=== PATIENT | male | born 1950 | race Caucasian/White ===

== ENCOUNTER → 2017-03-16 | Outpatient (CLI) | payer MEDICARE ==
[~2017-03-16] MED LIST: ASPI81TA82 PO; ATOR20TA42 PO; CALC.25 PO; CARV12.5 PO; CLON.1 PO; DIGO0.123 PO; ENAL10 PO; FURO1TAB93 PO; PROT40TA PO; TERA2CAP3 PO; TICA90 PO; WARF4 PO
[2017-03-16 13:23] LABS: HEMATOCRIT 43.6 % (39.0-51.0); MEAN CELL VOLUME 88.5 FL (80.0-100.0); MEAN CORPUSCULAR HEMOGLOBIN 30.5 PG (27.0-34.0); MEAN CORPUSCULAR HGB CONC 34.5 % (32.0-36.0); PLATELET COUNT 377 TH/MM3 (150-450); RED BLOOD COUNT 4.92 MIL/MM3 (4.50-5.90); RED CELL DISTRIBUTION WIDTH 14.1 % (11.6-17.2); REVIEW FLAG FINAL
[2017-03-16 13:30] LABS: ALT (GPT) 31 U/L (12-78); ANION GAP 3 MEQ/L (5-15); AST (GOT) 23 U/L (15-37); BICARBONATE 33.8 MEQ/L (21.0-32.0); BLOOD UREA NITROGEN 14 MG/DL (7-18); CHLORIDE 103 MEQ/L (98-107); GLOMERULAR FILTRATION RATE 73 ML/MIN (>89); GLUCOSE,FASTING 116 MG/DL (74-99); POTASSIUM 4.3 MEQ/L (3.5-5.1); SODIUM (NA) 140 MEQ/L (136-145)
[2017-03-16 13:38] LABS: MICRO ALBUMIN RANDOM URINE RAW 7.2 MG/L (0.0-30.0)
[2017-03-16 13:40] LABS: ALKALINE PHOSPHATASE 83 U/L (45-117); HDL CHOLESTEROL 33.6 MG/DL (40.0-60.0); INDIRECT BILIRUBIN 0.4 MG/DL (0.0-0.8); LDL CHOLESTEROL 45 MG/DL (0-99); TOTAL BILIRUBIN ADULT 0.5 MG/DL (0.2-1.0)
[2017-03-16 16:27] LABS: HEMOGLOBIN A1a 0.8 %; HEMOGLOBIN A1b 1.8 %; HEMOGLOBIN Ao 85.6 %; HEMOGLOBIN P3 3.6 %
== END ==
LOC: PLAB 09:05
PROVIDERS: ATTEND Family Medicine
DX: E11.9 Type 2 diabetes mellitus without complications (principal); I48.91 Unspecified atrial fibrillation
CPT/HCPCS: 36415; 80048; 80061; 80076; 82043; 83036; 84443; 85027

== ENCOUNTER 2017-09-29 18:15 | Emergency (ER) | payer MEDICARE ==
[~2017-09-29] VITALS: Ht 172.7 cm; Wt 87.1 kg
[2017-09-29 18:35] VITALS: BP 161/75; PULSE 72; RESP 16; TEMP 98.8; O2SAT 97
[2017-09-29] MEDS ORDERED: TERA2CAP3 PO (19:02)
[2017-09-29] MEDS ORDERED: CALC0.25 PO (19:02)
[2017-09-29] MEDS ORDERED: FURO40TA PO (19:02)
[2017-09-29] MEDS ORDERED: ATOR20TA15 PO (19:02)
[2017-09-29] MEDS ORDERED: AMLO10TA2 PO (19:02)
[2017-09-29] MEDS ORDERED: WARF-58 PO (19:02)
[2017-09-29] MEDS ORDERED: ENAL20TA PO ×2 (19:02)
[2017-09-29] MEDS ORDERED: PANT40TA3 PO (19:02)
[2017-09-29] MEDS ORDERED: ASPI81CH6 CHEW (19:02)
[2017-09-29] MEDS ORDERED: COQ150CA P-ARTICULR (19:02)
[2017-09-29] MEDS ORDERED: CARV25TA (19:02)
[2017-09-29] MEDS ORDERED: CLON0.1T PO (19:02)
--- NOTE | 2017-09-29 19:45 | PD ---
HPI Chief Complaint: Skin Problem Time Seen by Provider: 19:44 Travel History International Travel<30 days: No Contact w/Intl Traveler<30days: No Traveled to known affect area: No History of Present Illness HPI This is a 67-year-old male here with an inflamed sebaceous cyst to his back for the last week. He reports this cyst has been present for greater than 20 years. Over the last several days it has become increasingly more painful, red and swollen. He denies fever or chills. Symptoms severity is moderate. No aggravating or alleviating infection. PFSH Past Medical History Hx Anticoagulant Therapy: Yes (plavix) Autoimmune Disease: No Heart Rhythm Problems: No Cancer: No Cardiac Catheterization: Yes Cardiovascular Problems: Yes (htn on meds, a-fib, stents x 3 , bypass 3 vessels ) High Cholesterol: Yes Chest Pain: Yes Congestive Heart Failure: No Coronary Artery Disease: Yes Diabetes: Yes (type 2) Patient Takes Glucophage: No Diminished Hearing: No Endocrine: Yes Gastrointestinal Disorders: No Genitourinary: Yes Hypertension: Yes Immune Disorder: No Implanted Vascular Access Dvce: No Kidney Stones: Yes Musculoskeletal: No Neurologic: No Psychiatric: No Reproductive: No Respiratory: No Immunizations Current: No Tetanus Vaccination: > 5 Years Influenza Vaccination: No Past Surgical History Abdominal Surgery: No Cardiac Surgery: Yes Coronary Artery Bypass Graft: Yes (triple) Ear Surgery: No Endocrine Surgery: No Eye Surgery: No Genitourinary Surgery: No Gynecologic Surgery: No Neurologic Surgery: No Oral Surgery: No Thoracic Surgery: Yes Other Surgery: Yes (lt groin femoral artery repair facial skin cancer) Social History Alcohol Use: No Tobacco Use: No (quit over 20 years ago) Substance Use: No Allergies-Medications (Allergen,Severity, Reaction): Coded Allergies: No Known Allergies (Verified Allergy, Unknown, 09/29/17) Reported Meds & Prescriptions Reported Meds & Active Scripts Active Clindamycin (Clindamycin HCl) 300 Mg Cap 300 Mg PO TID 7 Days Reported Terazosin (Terazosin HCl) 2 Mg Cap 2 Mg PO HS Atorvastatin (Atorvastatin Calcium) 20 Mg Tab 20 Mg PO HS Pantoprazole (Pantoprazole Sodium) 40 Mg Tab 40 Mg PO DAILY Calcitriol 0.25 Mcg Cap 0.25 Mcg PO DAILY Warfarin 3 Mg Tab 3 Mg PO BID Enalapril (Enalapril Maleate) 20 Mg Tab 20 Mg PO BID Enalapril (Enalapril Maleate) 20 Mg Tab 20 Mg PO DAILY Furosemide 40 Mg Tab 40 Mg PO DAILY Clonidine (Clonidine HCl) 0.1 Mg Tab 0.1 Mg PO BID Carvedilol 25 Mg Tab 25 Mg BID Amlodipine (Amlodipine Besylate) 10 Mg Tab 10 Mg PO DAILY Coq10 (Coenzyme Q10 (Ubidecarenone)) 50 Mg Cap 100 Mg P-ARTICULR DAILY Aspirin Low Dose (Aspirin) 81 Mg Chew 81 Mg CHEW DAILY Review of Systems Except as stated in HPI: all other systems reviewed are Neg General / Constitutional: No: Fever Physical Exam Narrative GENERAL: Alert and well-appearing 59-year-old male SKIN: Warm and dry. Large 4 x 3 cm inflamed and braised cyst to the left upper back. The area is fluctuant. No surrounding cellulitis. HEAD: Normocephalic. EYES: No scleral icterus. No injection or drainage. NECK: Supple CARDIOVASCULAR: Regular rate and rhythm MUSCULOSKELETAL: No cyanosis, or edema. BACK: SEE skin noted above Data Data Last Documented VS Vital Signs Date Time Temp Pulse Resp B/P (MAP) Pulse Ox O2 Delivery O2 Flow Rate FiO2 09/29/17 18:35 98.8 72 16 161/75 (103) 97 Orders Orders Lidocai-Epi 1%-1:100,000 Inj (Xylocaine- (09/29/17 20:15) Ed Discharge Order (09/29/17 21:12) [facility] Medical Decision Making Medical Screen Exam Complete: Yes Emergency Medical Condition: Yes Differential Diagnosis Inflamed sebaceous cyst, abscess, cellulitis Narrative Course 59-year-old male here with complaints patient sits to his left upper back. Patient has a scheduled appointment with his road roller engineer on Sunday. He is afebrile. Nontoxic appearing. Incision and drainage was performed. He was instructed to follow-up with his road roller engineer on Sunday. Procedures Procedure Narrative INCISION AND DRAINAGE OF ABSCESS: The area was prepped and was sterilely draped. A subcutaneous wheal of 1 % lidocaine with epi was used to anesthetize the area properly. A number 11 scalpel was used to make a 1 -cm incision across the area of the abscess. The abscess was drained, complex loculations were broken down, and irrigated with normal saline. Sterile dressing applied. Diagnosis Primary Impression: Inflamed sebaceous cyst Referrals: Rehab Aide Additional Instructions: Antibiotics as directed. Wash the area with soap and water daily starting tomorrow. Follow-up with her road roller engineer on Sunday Scripts Clindamycin (Clindamycin) 300 Mg Cap 300 MG PO TID for Infection for 7 Days, CAP 0 Refills Prov: Mary Lou Knapp 09/29/17 Disposition: 01 DISCHARGE HOME Condition: Stable Mary Lou Knapp Sep 29, 2017 19:45
[2017-09-29] MEDS ORDERED: LIDOCAINE 1%/EPINEPHrine 1:100,000 SOLN 30 ML VIAL INFIL ONE (20:15)
[2017-09-29] MEDS ORDERED: LIDOCAINE 1%/EPINEPHrine 1:100,000 SOLN 20 ML VIAL INFIL ONE (20:15)
[2017-09-29] MEDS ORDERED: CLIN300C5 PO (21:12)
[2017-09-29] MEDS ORDERED: CLINDAMYCIN 150 MG CAP PO ONE (21:15)
== END 2017-09-29 21:27 | disposition home or self-care (01) ==
LOC: PHEFT 18:15
DX: L72.3 Sebaceous cyst (principal); I48.91 Unspecified atrial fibrillation; I10 Essential (primary) hypertension; E11.9 Type 2 diabetes mellitus without complications; Z95.1 Presence of aortocoronary bypass graft
CPT/HCPCS: 10060